=== PATIENT | female | born 1995 | race African-American/Black ===

== ENCOUNTER → 2020-11-21 | Outpatient (CLI) | payer SELFPAY | LOC: M LABSMTC 11:52 | PROVIDERS: ATTEND Pediatrics | DX: Z20.822 Contact with and (suspected) exposure to COVID-19 (principal) ==

== ENCOUNTER 2022-02-14 11:57 | Outpatient (CLI) | payer OTHER ==
[~2022-02-14] VITALS: Ht 170.2 cm; Wt 63.0 kg
[~2022-02-14 11:57] MED LIST: ALBUTEROL SULFATE 2.5 MG/0.5 ML INH NEB SOLN INH PRN; EPINEPHrine INJ 1 MG/ML 1ML AMP IM PRN; diphenhydrAMINE 50MG/ML VIAL (J1200) IV PRN; methylPREDNISolone 125MG 2ML VIAL IV PRN
[2022-02-14] MEDS ORDERED: NS 1,000 ML IV SCH (12:00)
[2022-02-14] MEDS ORDERED: FERRIC CARBOXYMALTOSE INJ 750 MG, VIAL MATE ADAPTER 1 EACH in NS 250 ML IV ONE (12:00)
[2022-02-14 12:10] VITALS: BP 119/82
[2022-02-14] MEDS ORDERED: FERR325T3 PO (13:37)
[2022-02-14] MEDS ORDERED: METF-839 PO (13:37)
[2022-02-14] MEDS ORDERED: birth control PO (13:38)
[2022-02-14 14:14] VITALS: BP 116/70
== END 2022-02-14 14:15 | disposition home or self-care (01) ==
LOC: M INFU 11:57
PROVIDERS: ATTEND Family Medicine
DX: D50.9 Iron deficiency anemia, unspecified (principal)
CPT/HCPCS: 96365; J1439

== ENCOUNTER 2022-02-21 13:15 | Outpatient (CLI) | payer OTHER ==
[~2022-02-21] VITALS: Ht 170.2 cm; Wt 63.0 kg
[2022-02-21 13:15] VITALS: BP 122/73
[~2022-02-21 13:15] MED LIST changes: +FERR325T3 PO; +FERRIC CARBOXYMALTOSE INJ 750 MG, VIAL MATE ADAPTER 1 EACH in NS 250 ML IV ONE; +METF-839 PO; +NS 1,000 ML IV SCH; +birth control PO
[2022-02-21 14:35] VITALS: BP 129/85
== END 2022-02-21 14:35 | disposition home or self-care (01) ==
LOC: M INFU 13:15
PROVIDERS: ATTEND Family Medicine
DX: D50.9 Iron deficiency anemia, unspecified (principal)
CPT/HCPCS: 96365; J1439